=== PATIENT | female | born 1945 | race Caucasian/White ===

== ENCOUNTER 2018-02-25 07:38 | Emergency (ER) | payer OTHER ==
[~2018-02-25] VITALS: Ht 167.6 cm; Wt 48.9 kg
[~2018-02-25 07:38] MED LIST: LEVO50TA5 PO
[2018-02-25 07:48] VITALS: BP 134/81
== END 2018-02-25 08:39 | disposition home or self-care (01) ==
LOC: ED 08:28
DX: K05.10 Chronic gingivitis, plaque induced (principal); I10 Essential (primary) hypertension; E11.9 Type 2 diabetes mellitus without complications; J45.909 Unspecified asthma, uncomplicated; E03.9 Hypothyroidism, unspecified; Z95.0 Presence of cardiac pacemaker
CPT/HCPCS: 99281